=== PATIENT | male | born 1985 | race African-American/Black ===

== ENCOUNTER 2018-06-03 19:38 | Emergency (ER) | payer MEDICAID ==
[~2018-06-03] VITALS: Ht 175.3 cm; Wt 88.9 kg
[2018-06-03 19:44] VITALS: BP 121/79
[2018-06-03 21:08] LABS: BASOPHILS # (AUTO) 0.1 K/uL (0.00-0.22); BASOPHILS % (AUTO) 0.7 % (0.0-2.0); EOSINOPHILS # (AUTO) 0.2 K/uL (0-0.4); EOSINOPHILS % (AUTO) 2.5 % (0.0-4.0); HEMATOCRIT 51.9 % (36-52); HEMOGLOBIN 17.1 g/dL (12.0-18.0); LYMPHOCYTES # (AUTO) 3.3 K/uL (2.0-11.5); LYMPHOCYTES % (AUTO) 45.8 % (20.5-51.1); MEAN CORPUSCULAR HEMOGLOBIN 25 pg (27-31); MEAN CORPUSCULAR HGB CONC 33 g/dL (33-37); MEAN CORPUSCULAR VOLUME 76.3 fL (80-94); MONOCYTES # (AUTO) 0.8 K/uL (0.8-1.0); MONOCYTES % (AUTO) 11.3 % (1.7-9.3); NEUTROPHILS # (AUTO) 2.9 K/uL (1.8-7.7); NEUTROPHILS % (AUTO) 39.7 % (42.2-75.2); PLATELET COUNT (AUTO) 226 K/uL (140-450); RED CELL DISTRIBUTION WIDTH 18.3 % (11.6-13.7); WHITE BLOOD COUNT (AUTO) 7.2 K/uL (4.8-10.8)
[2018-06-03 21:09] LABS: APPEARANCE,URINE CLEAR (CLEAR); COLOR,URINE YELLOW (YELLOW)
[2018-06-03 21:10] LABS: LEUKOCYTE ESTERASE ,URINE NEGATIVE (NEGATIVE); NITRITE, URINE NEGATIVE (NEGATIVE)
[2018-06-03 21:11] LABS: BLOOD, URINE NEGATIVE (NEGATIVE); UGLUCOSE NEGATIVE (NEGATIVE)
[2018-06-03 21:12] LABS: BILIRUBIN,URINE NEGATIVE (NEGATIVE)
[2018-06-03 21:22] LABS: ANION GAP 9.7 (8-16); CARBON DIOXIDE 29.3 mmol/L (21-32)
[2018-06-03 21:25] LABS: ALBUMIN 4.1 g/dL (3.4-5.0); TOTAL BILIRUBIN 0.3 mg/dL (0.0-1.0)
[2018-06-03 21:29] LABS: BARBITURATE, URINE NEGATIVE ng/ml (NEG <=200); BENZODIAZEPINE, URINE NEGATIVE ng/mL (NEG <=200); CANNABINOID, URINE NEGATIVE ng/mL (NEG <=50); COCAINE, URINE NEGATIVE ng/mL (NEG <=300); OPIATE, URINE NEGATIVE ng/mL (NEG <=2000); PHENCYCLIDINE SCREEN,URINE NEGATIVE ng/mL (NEG <=25)
[2018-06-03 22:05] VITALS: BP 121/79
== END 2018-06-03 22:05 | disposition home or self-care (01) ==
LOC: MED 19:38
DX: J32.9 Chronic sinusitis, unspecified (principal); R42 Dizziness and giddiness
CPT/HCPCS: 36415; 70450; 71045; 80053; 80305; 81003; 84484; 85025; 93005; 99285

== ENCOUNTER 2018-06-14 10:54 | Emergency (ER) | payer MEDICAID ==
[~2018-06-14] VITALS: Ht 177.8 cm; Wt 91.6 kg
[2018-06-14 10:59] VITALS: BP 135/91
--- NOTE | 2018-06-14 11:15 | NUR ---
PATIENT PRESENTS TO ED WITH THE CHIEF C/O DIZZINESS AND PAIN RIGHT SIDE ABDOMEN PAIN. BURNING PAIN. PT STATES PAIN STARTED 1 WEEK AGO. HAS NAUSEA AT THIS TIME. DENIES V/D; SKIN IS PINK/WARM/DRY; AAOX4 WITH EVEN AND STEADY GAIT; LUNGS CLEAR BL; HR EVEN AND REGULAR; PT DENIES ANY FEVER, CP, SOB, OR COUGH AT THIS TIME; PATIENT STATES PAIN OF 8/10 AT THIS TIME; VSS; PATIENT POSITIONED FOR COMFORT; HOB ELEVATED; BEDRAILS UP X2; BED DOWN. ER MD MADE AWARE OF PT STATUS.
[2018-06-14] MEDS ORDERED: NACL 0.9% 1,000 ML IV SCH (11:23)
[2018-06-14] MEDS ORDERED: PANTOPRAZOLE 40 MG INJ VIAL IVP ONE (11:25)
[2018-06-14] MEDS ORDERED: ONDANSETRON 4 MG/2 ML VIAL IVP ONE (11:25)
[2018-06-14] MEDS ORDERED: MORPHINE SULFATE 2 MG/ML SYR IVP ONE (11:25)
[2018-06-14 11:59] LABS: BASOPHILS % (AUTO) 0.2 % (0.0-2.0); EOSINOPHILS % (AUTO) 0.1 % (0.0-4.0); HEMATOCRIT 50.8 % (36-52); HEMOGLOBIN 16.4 g/dL (12.0-18.0); LYMPHOCYTES # (AUTO) 1.5 K/uL (2.0-11.5); LYMPHOCYTES % (AUTO) 14.8 % (20.5-51.1); MEAN CORPUSCULAR HEMOGLOBIN 25 pg (27-31); MEAN CORPUSCULAR HGB CONC 32 g/dL (33-37); MEAN CORPUSCULAR VOLUME 76.7 fL (80-94); MONOCYTES # (AUTO) 0.3 K/uL (0.8-1.0); NEUTROPHILS # (AUTO) 8.5 K/uL (1.8-7.7); NEUTROPHILS % (AUTO) 81.9 % (42.2-75.2); PLATELET COUNT (AUTO) 242 K/uL (140-450); RED BLOOD CELL COUNT(AUTO) 6.62 MIL/uL (4.20-6.10); RED CELL DISTRIBUTION WIDTH 18.2 % (11.6-13.7); WHITE BLOOD COUNT (AUTO) 10.4 K/uL (4.8-10.8)
[2018-06-14 12:14] LABS: ANION GAP 11.9 (8-16); CARBON DIOXIDE 28.4 mmol/L (21-32); CREATININE 1.1 mg/dL (0.7-1.3); POTASSIUM 4.3 mmol/L (3.5-5.1)
[2018-06-14 12:22] LABS: ALBUMIN 3.9 g/dL (3.4-5.0); TOTAL BILIRUBIN 0.4 mg/dL (0.0-1.0)
[2018-06-14 12:29] LABS: APPEARANCE,URINE CLEAR (CLEAR); BILIRUBIN,URINE NEGATIVE (NEGATIVE); BLOOD, URINE NEGATIVE (NEGATIVE); COLOR,URINE YELLOW (YELLOW); LEUKOCYTE ESTERASE ,URINE NEGATIVE (NEGATIVE); NITRITE, URINE NEGATIVE (NEGATIVE); UGLUCOSE NEGATIVE (NEGATIVE)
--- NOTE | 2018-06-14 13:15 | NUR ---
APPEARS TO BE RELAXED, RESTING COMFORTABLY IN BED. NO CHANGE IN LOC. WILL CONTINUE TO MONITOR.
--- NOTE | 2018-06-14 13:52 | NUR ---
Patient discharged with v/s stable. Written and verbal after care instructions given and explained. Patient alert, oriented and verbalized understanding of instructions. Ambulatory with steady gait. All questions addressed prior to discharge. ID band removed. Patient advised to follow up with PMD. Rx of OMEPRAZOLE AND MECLIZINE given. Patient educated on indication of medication including possible reaction and side effects. Opportunity to ask questions provided and answered.
[2018-06-14 13:54] VITALS: BP 137/83
== END 2018-06-14 13:52 | disposition home or self-care (01) ==
LOC: MED 10:54
DX: K29.60 Other gastritis without bleeding (principal); D45 Polycythemia vera
CPT/HCPCS: 36415; 76705; 80053; 81003; 83690; 85025; 96361; 96374; 96375; 99285; C9113; J2270; J2405; Q0092; J7030

== ENCOUNTER 2020-07-25 13:12 | Emergency (ER) | payer MEDICAID, SELFPAY ==
[~2020-07-25] VITALS: Ht 180.3 cm; Wt 90.7 kg
--- NOTE | 2020-07-25 13:17 | NUR ---
Olivia whalen in [facility] - 07/25/20 at 1337 by [id number]
[2020-07-25 13:21] VITALS: BP 121/98
--- NOTE | 2020-07-25 13:35 | NUR ---
C/O NOSE BLEED, HEADACHE 04/28 X 1 WEEK. COVID TESTED 1 WEEK AGO: NEGATIVE RESULT. NO BLEEDING AT THIS TIME.
--- NOTE | 2020-07-25 15:24 | NUR ---
PT AMB TO [facility]
[2020-07-25 17:47] VITALS: BP 121/98
--- NOTE | 2020-07-25 17:48 | NUR ---
Patient discharged with v/s stable. Written and verbal after care instructions given and explained. Patient alert, oriented and verbalized understanding of instructions. Ambulatory with steady gait. All questions addressed prior to discharge. ID band removed. Patient advised to follow up with PMD. Rx of Augmentin 875mg given. Patient educated on indication of medication including possible reaction and side effects. Opportunity to ask questions provided and answered.
== END 2020-07-25 17:48 | disposition home or self-care (01) ==
LOC: MED 13:12
DX: J32.9 Chronic sinusitis, unspecified (principal)
CPT/HCPCS: 70220; 71046; 99284